=== PATIENT | male | born 1985 | race Caucasian/White ===

== ENCOUNTER 2021-07-10 17:30 | Emergency (ER) | payer BC, SELFPAY ==
[2021-07-10 17:35] VITALS: BP 149/80; PULSE 90; RESP 16; TEMP 37.4; O2SAT 100; BMI 31.0
[2021-07-10] MEDS: SODIUM CHLORIDE 0.9% 1,000 ML 1000 ML IV (19:43)
[2021-07-10] MEDS: METOCLOPRAMIDE 10 MG/2 ML INJ IV (19:44)
[2021-07-10] MEDS: diphenhydrAMINE 50 MG/ML VIAL 25 MG IV (19:44)
[2021-07-10] MEDS: DEXAMETHASONE 10 MG/ML VIAL IV (19:46)
[2021-07-10] MEDS: OXYCODONE/ACETAMINOPHEN 5/325 TABLET 1 TAB PO (19:47)
[2021-07-10 19:57] VITALS: BP 118/64; PULSE 73; O2SAT 98
[2021-07-10 20:01] VITALS: BP 118/64; PULSE 73; O2SAT 98
--- NOTE | 2021-07-10 20:08 | ED.HA ---
HPI - Headache <ARAVIND Lovell - Last Filed: 07/10/21 21:34> General Chief Complaint: Headache Stated Complaint: MIGRAINE Time Seen by Provider: 07/10/21 19:29 Mode of arrival: Ambulatory History of Present Illness HPI Narrative: 36-year-old male presents to the emergency department 1 day after he went to [facility] for a headache which started on 07/07/21. Patient has been having chills, fevers at night, and sweating the bed, a headache with photophobia, lightheadedness if he stands from sitting or lying since 07/07/2021. Patient denies any runny nose, cough, shortness of breath, chest pain, abdominal pain, nausea vomiting, mild throat pain, denies neck pain, reports this is the temporal headache that is squeezing in nature. He has tried Motrin, Tylenol today without any improvement. Yesterday [facility] he received Toradol, Tylenol, his respiratory panel was negative for all tested viruses including COVID, patient denies any productive cough, or other pain. Patient denies any sick contacts, reports that he has been dehydrated because his urine has been dark in color. Related Data Home Medications Medication Instructions Recorded Confirmed ibuprofen 200 mg tablet (Advil) #0 11/10/12 oxycodone-acetaminophen 5 mg-325 #0 11/10/12 mg tablet (Percocet) sulfamethoxazole 800 #0 11/10/12 mg-trimethoprim 160 mg tablet Review of Systems <ARAVIND Lovell - Last Filed: 07/10/21 21:34> Review of Systems Narrative: General: denies fever, chills Head/Neck: Endorses temporal headache, denies neck pain Eyes: Endorses photophobia with headache, denies eye pain Cardio: denies chest pain, palpitations Respiratory: denies shortness of breath, cough GI: denies abdominal pain, nausea, vomiting, or diarrhea : denies dysuria, hematuria MSK: denies joint pain, muscle weakness Skin: denies rash, itching Neuro: denies numbness, tingling Patient History <ARAVIND Lovell - Last Filed: 07/10/21 21:34> Social History Smoking Status: Current every day smoker Smoking Status: Current every day smoker tobacco type: vaping alcohol intake frequency: holidays/special occasions only Substance Use Type: marijuana Exam <ARAVIND Lovell - Last Filed: 07/10/21 21:34> Narrative Exam Narrative: Independently reviewed vitals signs and nursing notes. General: Awake, alert, nontoxic, no cardiorespiratory distress Head/Neck: Atraumatic, neck full range of motion Eyes: EOMI, conjunctiva normal, without nystagmus Nose: nares patent, no rhinorrhea Mouth/Throat: moist mucus membranes, posterior pharynx erythematous with mild cobblestoning, throat culture obtained, patient does not have tonsils, no oral lesions Cardio: Regular rate and rhythm, no peripheral edema Respiratory: respirations unlabored without wheezing, stridor, or rales. No retractions. GI: Abdomen soft, nontender MSK: Moves all extremities, neurovascularly intact Skin: Normal capillary refill, no rash Neuro: Normal speech and cognition, normal gait Initial Vital Signs Initial Vital Signs: Vital Signs Temperature 99.3 F 07/10/21 17:35 Pulse Rate 90 07/10/21 17:35 Respiratory Rate 16 07/10/21 17:35 Blood Pressure 149/80 H 07/10/21 17:35 Pulse Oximetry 100 07/10/21 17:35 <Gray Ho DO - Last Filed: 07/10/21 23:28> Initial Vital Signs Initial Vital Signs: Vital Signs Temperature 99.3 F 07/10/21 17:35 Pulse Rate 90 07/10/21 17:35 Respiratory Rate 16 07/10/21 17:35 Blood Pressure 149/80 H 07/10/21 17:35 Pulse Oximetry 100 07/10/21 17:35 Course <ARAVIND Lovell - Last Filed: 07/10/21 21:34> Orders Ordered: ED Orders 07/10/21 19:40 Throat Culture Stat 07/10/21 20:15 UA Complete [Urinalysis and Microscopic] Stat Discontinued Medications Dexamethasone (Dexamethasone 10 Mg/Ml Vial) 10 mg IV NOW ONE Stop: 07/10/21 19:32 Last Admin: 07/10/21 19:46 Dose: 10 mg Documented by: SILVIA Diphenhydramine HCl (Diphenhydramine 50 Mg/Ml Vial) 25 mg IV NOW ONE Stop: 07/10/21 19:32 Last Admin: 07/10/21 19:44 Dose: 25 mg Documented by: SILVIA Sodium Chloride (Normal Saline 0.9%) 1,000 mls @ 1,000 mls/hr IV BOLUS ONE Stop: 07/10/21 20:30 Last Infusion: 07/10/21 20:53 Dose: 0 mls/hr Documented by: Admin: 07/10/21 19:43 Dose: 1,000 mls/hr Documented by: SILVIA Methocarbamol (Methocarbamol 500 Mg Tablet) 500 mg PO NOW ONE Stop: 07/10/21 20:16 Last Admin: 07/10/21 20:21 Dose: 500 mg Documented by: SILVIA Metoclopramide HCl (Metoclopramide 10 Mg/2 Ml Inj) 10 mg IV NOW ONE Stop: 07/10/21 19:32 Last Admin: 07/10/21 19:44 Dose: 10 mg Documented by: SILVIA Oxycodone/Acetaminophen (Oxycodone/Acetaminophen 5/325 Tablet) 1 tab PO NOW ONE Stop: 07/10/21 19:40 Last Admin: 07/10/21 19:47 Dose: 1 tab Documented by: SILVIA Sumatriptan Succinate (Sumatriptan 6 Mg/0.5 Ml Vial) 6 mg SUBCUT NOW ONE Stop: 07/10/21 20:13 Last Admin: 07/10/21 20:22 Dose: 6 mg Documented by: SILVIA Vital Signs Vital signs: Vital Signs - 8 hr 07/10/21 17:35 07/10/21 19:57 07/10/21 20:01 Temperature 99.3 F Pulse Rate 90 73 73 Respiratory Rate 16 Blood Pressure 149/80 H 118/64 118/64 Pulse Oximetry 100 98 98 <Gray Ho DO - Last Filed: 07/10/21 23:28> Orders Ordered: ED Orders 07/10/21 19:40 Throat Culture Stat 07/10/21 20:15 UA Complete [Urinalysis and Microscopic] Stat Discontinued Medications Dexamethasone (Dexamethasone 10 Mg/Ml Vial) 10 mg IV NOW ONE Stop: 07/10/21 19:32 Last Admin: 07/10/21 19:46 Dose: 10 mg Documented by: SILVIA Diphenhydramine HCl (Diphenhydramine 50 Mg/Ml Vial) 25 mg IV NOW ONE Stop: 07/10/21 19:32 Last Admin: 07/10/21 19:44 Dose: 25 mg Documented by: SILVIA Sodium Chloride (Normal Saline 0.9%) 1,000 mls @ 1,000 mls/hr IV BOLUS ONE Stop: 07/10/21 20:30 Last Infusion: 07/10/21 20:53 Dose: 0 mls/hr Documented by: Admin: 07/10/21 19:43 Dose: 1,000 mls/hr Documented by: SILVIA Methocarbamol (Methocarbamol 500 Mg Tablet) 500 mg PO NOW ONE Stop: 07/10/21 20:16 Last Admin: 07/10/21 20:21 Dose: 500 mg Documented by: SILVIA Metoclopramide HCl (Metoclopramide 10 Mg/2 Ml Inj) 10 mg IV NOW ONE Stop: 07/10/21 19:32 Last Admin: 07/10/21 19:44 Dose: 10 mg Documented by: SILVIA Oxycodone/Acetaminophen (Oxycodone/Acetaminophen 5/325 Tablet) 1 tab PO NOW ONE Stop: 07/10/21 19:40 Last Admin: 07/10/21 19:47 Dose: 1 tab Documented by: SILVIA Sumatriptan Succinate (Sumatriptan 6 Mg/0.5 Ml Vial) 6 mg SUBCUT NOW ONE Stop: 07/10/21 20:13 Last Admin: 07/10/21 20:22 Dose: 6 mg Documented by: SILVIA Vital Signs Vital signs: Vital Signs - 8 hr 07/10/21 17:35 07/10/21 19:57 07/10/21 20:01 Temperature 99.3 F Pulse Rate 90 73 73 Respiratory Rate 16 Blood Pressure 149/80 H 118/64 118/64 Pulse Oximetry 100 98 98 MDM - Headache <ARAVIND Lovell - Last Filed: 07/10/21 21:34> Lab Data Labs: Lab Results 07/10/21 Range/Units 20:15 Urine Color Yellow Urine Appearance Clear Urine pH 7.0 (4.5-8.0) Ur Specific [place] <=1.005 (1.000-1.035) Urine Protein Negative (Negative) Urine Glucose (UA) Negative (Negative) g/dL Urine Ketones Negative (NEGATIVE) Urine Occult Blood Negative (Negative) Urine Nitrate Negative (Negative) Urine Bilirubin Negative (NEGATIVE) Urine Urobilinogen 0.2 (0.2) E.U./dL Ur Leukocyte Esterase Negative (NEGATIVE) Urine RBC None seen (0-5/HPF) Urine WBC 0-1/hpf (0-5/HPF) Ur Squamous Epith Cells 0-1 /hpf (0-5/HPF) Urine Bacteria None seen (None) Ur Culture Indicated? Cult not indicated MDM Narrative Medical decision making narrative: 36-year-old presents to the emergency department tonight for headache which has been ongoing for 4 days. Yesterday he was seen at [facility] emergency and diagnosed with viral syndrome with a negative respiratory panel, was given Toradol and Tylenol for pain. Tonight he has a Low-grade fever, denies any other symptoms other than his headache. Posterior pharynx with mild erythema, pt previously had a T&A removal, no anterior cervical lymphadenopathy but throat culture was obtained to rule out strep or bacterial cause for his symptoms. Patient denies any dental pain, abdominal pain, or any other focal symptoms. He does not have neck tenderness or rigidity, low suspicion for meningitis. Patient was given 1 L of normal saline for dehydration, dexamethasone, Benadryl, Reglan, Percocet, and sumatriptan succinate which brought patient's pain from a 9/10 down to a 4/10. Patient was not given Toradol as he received in the last 24 hours. Patient was referred to [facility] to follow-up with a primary care provider. He states that his previous provider has left the office, and he needs to follow-up with a new provider there. I told him we will call him if his cultures are positive if he needs an antibiotic. Encouraged to treat symptomatically and to return if he develops any worsening, or any focal symptoms that we could better evaluate. Patient is appropriate and amenable to discharge home. Vital signs are stable on repeat examination is unremarkable. Patient has been informed of results. Patient has been given strict return to ER precautions for any new or worsening symptoms. Patient understands to follow up closely with outpatient providers as instructed. Patient understands plan and agrees to discharge home. All questions and concerns answered at this time. <Gray Lanker, DO - Last Filed: 07/10/21 23:28> Lab Data Labs: Lab Results 07/10/21 Range/Units 20:15 Urine Color Yellow Urine Appearance Clear Urine pH 7.0 (4.5-8.0) Ur Specific [place] <=1.005 (1.000-1.035) Urine Protein Negative (Negative) Urine Glucose (UA) Negative (Negative) g/dL Urine Ketones Negative (NEGATIVE) Urine Occult Blood Negative (Negative) Urine Nitrate Negative (Negative) Urine Bilirubin Negative (NEGATIVE) Urine Urobilinogen 0.2 (0.2) E.U./dL Ur Leukocyte Esterase Negative (NEGATIVE) Urine RBC None seen (0-5/HPF) Urine WBC 0-1/hpf (0-5/HPF) Ur Squamous Epith Cells 0-1 /hpf (0-5/HPF) Urine Bacteria None seen (None) Ur Culture Indicated? Cult not indicated Discharge Plan Departure Patient Disposition: Home Clinical Impression: Headache, Fever Instructions: DI for Migraine, DI for Viral Syndrome Activity Restrictions/Additional Instructions: *You have been diagnosed with fever of unknown origin, a headache for 4 days, likely a viral syndrome however your respiratory panel was negative for all tested viruses. If you get a phone call from the hospital about your throat culture, please answer as you may need antibiotics for an infection like strep throat. Please try and stay hydrated, use ibuprofen and Tylenol as needed for pain, hopefully your headache is gone by tomorrow, if this returns, you are worsening, please return for further evaluation. Thank you for trusting us with your care, sorry we do not have a good answer to your headache and fever. If you develop any focal symptoms like your pain, abdominal pain, or anything like that that may be the source, and it would be best to come in without information and have us evaluate it. Please call Angela Comer's office 1st thing in the morning and state that you have a referral to follow-up as soon as possible for headache and fever of unknown origin. Say who used to see and how she left, and need to establish care with a new primary. *What to do: *Please continue to take your regular medications as directed. [ ] New medication prescriptions sent to your pharmacy: [ ] [ ] New medication written as a paper prescription [x ] No new medications given *Please follow up with your primary care provider in 2-3 days, call for an appointment. Let them know you were seen in the Emergency Department and that we ask that you be seen in follow up. We will electronically transmit a record of today's note if your PCP is in our system *If you do not have a primary care provider please contact the [facility] Resource line at [phone]. They will ask some questions about your medical history and help get you set up with a doctor in the community. *Return to Emergency Department if you should have any new, worsening or concerning symptoms, such as [fever greater than 101F, chills, worsening pain, persistent vomiting or other bothersome symptoms] Prescriptions: No Action sulfamethoxazole-trimethoprim 800 MG/160 MG tablet Qty: 0 0RF oxycodone-acetaminophen [Percocet] 5 MG/325 MG tablet Qty: 0 0RF ibuprofen [Advil] 200 MG tablet Qty: 0 0RF Referrals: Angela Comer ARNP [Non-Staff] - As soon as possible (Please follow up DELANEY ) Barb Melissa PA-C [Primary Care Provider] - <Gray Ho DO - Last Filed: 07/10/21 23:28> Cosign ED Attending Cosprabhakarature Attestation: Dr Ho Co-Sign Statement: I was available for consultation during this patient's emergency department visit. This chart is signed by myself for administrative purposes only. I did not have direct contact with this patient during this visit. They were seen independently by the APC.
[2021-07-10] MEDS: methocarbamoL 500 MG TABLET PO (20:21)
[2021-07-10] MEDS: SUMAtriptan 6 MG/0.5 ML VIAL SUBCUT (20:22)
[2021-07-10 20:37] LABS: Appearance Urine UA CLEAR; Bilirubin Urine UA NEGATIVE (NEGATIVE); Color Urine UA YELLOW; Glucose Urine UA NEGATIVE (Negative); Ketones Urine UA NEGATIVE (NEGATIVE); Leukocyte Esterase Urine UA NEGATIVE (NEGATIVE); Nitrite Urine UA NEGATIVE (Negative); Occult Blood Urine UA NEGATIVE (Negative); Protein Urine UA NEGATIVE (Negative); Specific Gravity Urine UA <=1.005 (1.000-1.035); Urobilinogen Urine UA 0.2 E.U./dL (0.2)
[2021-07-10 20:45] LABS: Bacteria Urine None Seen; Culture Indicated Urine Cult Not Indicated; RBC Urine None Seen (0-5/HPF); Squamous Epithelial Cell Urine 0-1 /HPF (0-5/HPF); WBC Urine 0-1/HPF (0-5/HPF)
== END 2021-07-10 21:38 | disposition home or self-care (01) ==
PROVIDERS: Emergency Provider Nurse Practitioner Critical Care Medicine; Family Provider Physician Assistant Medical; PCP Physician Assistant Medical
DX: R51.9 Headache, unspecified (principal); R50.9 Fever, unspecified; E86.0 Dehydration; R42 Dizziness and giddiness
CPT/HCPCS: 81001; 87070; 96361; 96372; 96374; 96375; 99284; J1100; J1200; J2765; J3030

== ENCOUNTER 2021-07-13 11:46 | Emergency (ER) | payer BC, SELFPAY ==
[2021-07-13] VITALS (10 sets, daily range): BP systolic 123–133; BP diastolic 73–83; PULSE 49–64; RESP 18; TEMP 36.6; O2SAT 94–98; BMI 30.4
--- NOTE | 2021-07-13 13:01 | ED_ITS ---
HPI - Chest Pain <Riky Jordan PA-C - Last Filed: 07/13/21 20:01> General Chief Complaint: Chest Pain Stated Complaint: headaches, chest pain Time Seen by Provider: 07/13/21 12:14 Source: patient Mode of arrival: Ambulatory Limitations: no limitations History of Present Illness HPI narrative: Patient is a 36-year-old male presenting to the emergency department today for evaluation of ongoing headache and nausea. Patient states that he has experienced an on again off again headache for approximately 1 week. He was originally seen at [facility] and was given Toradol and Tylenol to help alleviate his pain. He states that his pain reduced but returned the very next day with the same nausea and headache. He was then seen here at [facility] ER and was given numerous medications to help with his headache. He states that he began to feel better and was discharged home, but notes that he began to experience a headache, chest pain, nausea, and night sweats on . Of note, patient states that a close contact and recently tested positive for COVID-19. He denies cough, shortness of breath, vomiting, diarrhea, abdominal pain, dysuria, hematuria, diaphoresis, jaw pain, arm pain, or any other concerning symptoms. No further concerns or forced at this time. Related Data Home Medications Medication Instructions Recorded Confirmed ibuprofen 200 mg tablet (Advil) #0 11/10/12 oxycodone-acetaminophen 5 mg-325 #0 11/10/12 mg tablet (Percocet) sulfamethoxazole 800 #0 11/10/12 mg-trimethoprim 160 mg tablet Previous Rx's Medication Instructions Recorded ondansetron HCl 4 mg tablet 4 mg PO Q8H PRN #20 tab 07/13/21 (Zofran) Review of Systems <Riky Jordan PA-C - Last Filed: 07/13/21 20:01> Constitutional Constitutional: Denies chills, Denies fatigue, Denies fever(s), Denies frequent falls, Reports headache(s), Denies lethargy, Reports night sweats and Denies weakness Eyes Eyes: Denies loss of vision ENT Ears, Nose, Mouth, and Throat: Denies change in voice, Denies dizziness, Reports headache(s), Denies neck pain, Denies sore throat and Denies throat swelling Cardiovascular Cardiovascular: Reports chest pain, Denies irregular heart rhythm, Denies lightheadedness, Denies palpitations, Denies dyspnea, Denies dyspnea on exertion and Denies orthopnea Respiratory Respiratory: Denies cough, Denies dyspnea, Denies dyspnea on exertion and Denies wheezing Gastrointestinal Gastrointestinal: Denies abdominal pain, Denies change in bowel habits, Reports constipation, Denies diarrhea, Reports nausea and Denies vomiting Genitourinary Genitourinary: Denies hematuria, Denies flank pain, Denies urinary incontinence and Denies urinary urgency Musculoskeletal Musculoskeletal: Denies back pain, Denies muscle weakness, Denies neck pain, Denies numbness and Denies tingling Integumentary/Breasts Skin/Breast: Denies pruritus, Denies erythema, Denies rash and Denies wounds Neurologic Neurologic: Denies behavioral changes, Denies confusion, Denies dizziness, Denies frequent falls, Reports headache(s), Denies loss of vision, Denies numbness, Denies tingling and Denies weakness Psychiatric Psychiatric: Denies behavioral changes and Denies confusion Endocrine Endocrine: Denies fatigue and Denies palpitations Allergic/Immunologic Allergic/Immunologic: Denies throat swelling and Denies wheezing Patient History <Riky Jordan PA-C - Last Filed: 07/13/21 20:01> Social History Smoking Status: Current every day smoker Smoking Status: Current every day smoker tobacco type: vaping alcohol intake frequency: holidays/special occasions only Substance Use Type: marijuana Exam <Riky Jordan PA-C - Last Filed: 07/13/21 20:01> Narrative Exam Narrative: GENERAL: 36 year old patient appears stated age. Well-developed patient, in no acute distress. HEAD: Atraumatic. Normocephalic. EYES: Pupils equal round and reactive. Extraocular motions intact. No scleral icterus. No injection or drainage. ENT: Nose without bleeding, purulent drainage. Throat without erythema, tonsillar hypertrophy or exudate. Airway patent. NECK: Trachea midline. Non tender CARDIOVASCULAR: Regular rate and rhythm without murmurs, gallops, or rubs. RESPIRATORY: Clear to auscultation. Breath sounds equal bilaterally. No wheezes, rales, or rhonchi. GASTROINTESTINAL: Abdomen soft, non-tender, nondistended. EXTREMITIES: No edema or joint tenderness. BACK: Nontender without deformity or crepitance. No flank tenderness. NEURO: AOx3. SKIN: No rash or erythema of visible areas Initial Vital Signs Initial Vital Signs: Vital Signs Temperature 98 F 07/13/21 11:51 Pulse Rate 64 07/13/21 11:51 Respiratory Rate 18 07/13/21 11:51 Blood Pressure 133/79 07/13/21 11:51 Pulse Oximetry 98 07/13/21 11:51 Course <Riky Jordan PA-C - Last Filed: 07/13/21 20:01> Course Course Narrative: Patient is provided intramuscular Toradol, IV Benadryl, IV normal saline, IV Decadron, and IV Reglan for headache. EKG and chest x-ray obtained as well as respiratory panel, CBC, CMP, troponin Orders Ordered: ED Orders 07/13/21 11:59 Respiratory Panel (Film Array) Stat 07/13/21 12:14 CBC Auto Diff [Complete Blood Count AUTO DIFF] Stat CMP [Comprehensive Metabolic Panel] Stat Troponin & CK Cardiac Panel Stat 07/13/21 13:08 XR chest 1V Stat Discontinued Medications Dexamethasone (Dexamethasone 4 Mg/Ml Vial) 4 mg IV NOW ONE Stop: 07/13/21 12:58 Last Admin: 07/13/21 13:26 Dose: 4 mg Documented by: KATE Diphenhydramine HCl (Diphenhydramine 50 Mg/Ml Vial) 25 mg IV NOW ONE Stop: 07/13/21 12:58 Last Admin: 07/13/21 13:26 Dose: 25 mg Documented by: KATE Sodium Chloride (Normal Saline 0.9%) 1,000 mls @ 1,000 mls/hr IV BOLUS ONE Stop: 07/13/21 13:56 Last Infusion: 07/13/21 14:42 Dose: 0 mls/hr Documented by: Admin: 07/13/21 13:28 Dose: 1,000 mls/hr Documented by: KATE Ketorolac Tromethamine (Ketorolac 30 Mg/Ml Vial) 15 mg IM NOW ONE Stop: 07/13/21 12:58 Last Admin: 07/13/21 13:27 Dose: 15 mg Documented by: KATE Metoclopramide HCl (Metoclopramide 10 Mg/2 Ml Inj) 5 mg IV NOW ONE Stop: 07/13/21 12:58 Last Admin: 07/13/21 13:26 Dose: 5 mg Documented by: KATE Vital Signs Vital signs: Vital Signs - 8 hr 07/13/21 12:30 07/13/21 13:00 07/13/21 13:30 Pulse Rate 62 60 58 L Blood Pressure 124/80 123/80 133/83 Pulse Oximetry 97 95 94 07/13/21 14:00 07/13/21 14:01 07/13/21 14:30 Pulse Rate 49 L 52 L 52 L Blood Pressure 131/76 Pulse Oximetry 94 95 94 07/13/21 14:31 07/13/21 14:56 Pulse Rate 54 L 62 Blood Pressure 130/76 124/73 Pulse Oximetry 94 97 MDM - Chest Pain <Riky Jordan PA-C - Last Filed: 07/13/21 20:01> Medical Records Data Medical records narrative: To consider tension headache versus migraine versus cluster headache versus viral upper respiratory infection versus COVID-19 versus pneumonia. Lab Data Result diagrams: 07/13/21 12:14 07/13/21 12:14 Labs: Lab Results 07/13/21 07/13/21 07/13/21 Range/Units 11:59 12:14 12:14 WBC 6.5 (4.5-11.0) X10^3/uL RBC 4.70 (4.5-5.9) X10^6/uL Hgb 14.4 (13.5-17.5) g/dL Hct 41.2 (41-53) % MCV 87.7 (80-100) fL MCH 30.6 (26-34) PG MCHC 34.9 (30-36) % RDW 13.3 (11.6-14.8) % Plt Count 223 (150-400) X10^3/uL Neut % (Auto) 60.8 (50-75) % Lymph % (Auto) 25.5 (25-40) % [place] % (Auto) 10.4 (3-14) % Eos % (Auto) 2.1 (2-4) % Baso % (Auto) 1.2 (0-2) % Neut # (Auto) 4000 (1025-1934) /uL Lymph # (Auto) 1700 (7697-3106) /uL [place] # (Auto) 700 (0-900) /uL Eos # (Auto) 100 (0-450) /uL Baso # (Auto) 100 (0-100) /uL Sodium 138 (137-145) mmol/L Potassium 3.8 (3.4-5.1) mmol/L Chloride 106 (98-107) mmol/L Carbon Dioxide 27 (22-32) mmol/L BUN 12 (9-20) mg/dL Creatinine 1.06 (0.66-1.25) mg/dL Estimated GFR > 60.0 (>60) mL/min BUN/Creatinine Ratio 11.3 (6-22) Glucose 116 H (70-100) mg/dL Calcium 9.1 (8.4-10.2) mg/dL Total Bilirubin 0.7 (0.2-1.3) mg/dL AST 20 (17-59) IU/L ALT 17 (<50) IU/L Alkaline Phosphatase 26 L (38-126) U/L Total Creatine Kinase 83 (55-170) U/L CK-MB (CK-2) TNP CK-MB (CK-2) Rel Index TNP Troponin I < 0.012 (0.01-0.034) ng/mL Total Protein 6.7 (6.3-8.2) g/dL Albumin 4.2 (3.5-5.0) g/dL Globulin 2.5 (1.7-4.1) g/dL Albumin/Globulin Ratio 1.7 (1.0-2.8) Chlamy pneumoniae PCR Not detected (Not Detect) Adenovirus (PCR) Not detected (Not Detect) B. pertussis DNA (PCR) Not detected (Not Detecte) B.parapertussis DNA PCR Not detected (Not Detecte) Coronavirus OC43 (PCR) Not detected (Not Detect) Coronavirus HKU1 (PCR) Not detected (Not Detect) Coronavirus 229E (PCR) Not detected (Not Detect) SARS-CoV-2 (PCR) Not detected (Not Detecte) Coronavirus NL63 (PCR) Not detected (Not Detect) Human Metapneumovir PCR Not detected (Not Detect) Influenza Type A (PCR) Not detected (Not Detect) Influenza Type B (PCR) Not detected (Not Detect) M. pneumoniae (PCR) Not detected (Not Detect) Parainfluenza 1 (PCR) Not detected (Not Detect) Parainfluenza 2 (PCR) Not detected (Not Detect) Parainfluenza 3 (PCR) Not detected (Not Detect) Parainfluenza 4 (PCR) Not detected (Not Detect) RSV (PCR) Not detected (Not Detect) Entero/Rhino (PCR) Not detected (Not Detect) Imaging Data Chest x-ray: Radiologist's Impression: PROCEDURE:? XR CHEST 1V ? INDICATIONS:? Chest pain ? TECHNIQUE:? One view of the chest was acquired.? ? COMPARISON:? None. ? FINDINGS:? ? Surgical changes and devices:? None.? ? Lungs and pleura:? Lungs are clear.? No pleural effusions or pneumothorax.? ? Mediastinum:? Mediastinal contours appear normal.? Heart size is normal.? ? Bones and chest wall:? No suspicious bony lesions.? Overlying soft tissues appear unremarkable.? ? IMPRESSION:? No acute cardiopulmonary abnormality. ? ? Dictated by: Claudio Hart M.D. on 07/13/2021 at 14:36 ? ? Approved by: Claudio Hart M.D. on 07/13/2021 at 14:37 ? MDM Narrative Medical decision making narrative: To consider viral upper respiratory infection versus COVID-19 versus pneumonia verses migraine versus tension headache versus cluster headache. Overall physical examination, history, lab work, and imaging are reassuring. Discussed lab work and imaging with patient informed him that no acute abnormalities were detected. Patient states that he is feeling better after Decadron, normal saline, Benadryl, Toradol, and Reglan. Patient requests a refill on his Zofran prescription and I have provided that consented to his preferred pharmacy. Patient states at this time he feels comfortable being discharged home he is stable for discharge. Strict return precautions were discussed with the patient prior to discharge. Discharge Plan Departure Patient Disposition: Home Clinical Impression: Headache, Chest pain Instructions: DI for Migraine Activity Restrictions/Additional Instructions: *You have been diagnosed with headache, chest pain *What to do: *Please continue to take your regular medications as directed. [X] New medication prescriptions sent to your pharmacy: [facility] - Zofran [ ] New medication written as a paper prescription [ ] No new medications given *Please follow up with your primary care provider in 2-3 days, call for an appointment. Let them know you were seen in the Emergency Department and that we ask that you be seen in follow up. We will electronically transmit a record of today's note if your PCP is in our system *If you do not have a primary care provider please contact the [facility] Resource line at [phone]. They will ask some questions about your medical history and help get you set up with a doctor in the community. *Return to Emergency Department if you should have any new, worsening or concerning symptoms, such as fever greater than 101 F, shaking chills, worsening pain, persistent vomiting or other bothersome symptoms Prescriptions: New ondansetron HCl [Zofran] 4 mg tablet 4 mg PO Q8H PRN (Reason: nausea and vomiting) Qty: 20 0RF No Action sulfamethoxazole-trimethoprim 800 MG/160 MG tablet Qty: 0 0RF oxycodone-acetaminophen [Percocet] 5 MG/325 MG tablet Qty: 0 0RF ibuprofen [Advil] 200 MG tablet Qty: 0 0RF Referrals: Barb Melissa PA-C [Primary Care Provider] -
--- NOTE | 2021-07-13 13:08 | DI.RAD.S_ITS ---
PROCEDURE: XR CHEST 1V INDICATIONS: Chest pain TECHNIQUE: One view of the chest was acquired. COMPARISON: None. FINDINGS: Surgical changes and devices: None. Lungs and pleura: Lungs are clear. No pleural effusions or pneumothorax. Mediastinum: Mediastinal contours appear normal. Heart size is normal. Bones and chest wall: No suspicious bony lesions. Overlying soft tissues appear unremarkable. IMPRESSION: No acute cardiopulmonary abnormality. Dictated by: Claudio Hart M.D. on 07/13/2021 at 14:36 Approved by: Claudio Hart M.D. on 07/13/2021 at 14:37
[2021-07-13 13:15] LABS: Add Manual Diff / Slide Review NO; Basophils Absolute Auto 100 /uL (0-100); Basophils Percent Auto 1.2 % (0-2); Eosinophils Absolute Auto 100 /uL (0-450); Eosinophils Percent Auto 2.1 % (2-4); Hematocrit 41.2 % (41-53); Hemoglobin 14.4 g/dL (13.5-17.5); Lymphocytes Absolute Auto 1700 /uL (1100-4500); Lymphocytes Percent Auto 25.5 % (25-40); Mean Corpuscular HGB Conc 34.9 % (30-36); Mean Corpuscular Hemoglobin 30.6 PG (26-34); Mean Corpuscular Volume 87.7 fL (80-100); Monocytes Absolute Auto 700 /uL (0-900); Monocytes Percent Auto 10.4 % (3-14); Neutrophils Absolute Auto 4000 /uL (1500-7000); Neutrophils Percent Auto 60.8 % (50-75); Platelet Count 223 X10^3/uL (150-400); Red Cell Distribution Width 13.3 % (11.6-14.8); White Blood Cell Count 6.5 X10^3/uL (4.5-11.0)
[2021-07-13 13:20] LABS: Alanine Aminotransferase 17 IU/L (<50); Albumin 4.2 g/dL (3.5-5.0); Albumin Globulin Ratio 1.7 (1.0-2.8); Alkaline Phosphatase 26 U/L (38-126); Aspartate Aminotransferase 20 IU/L (17-59); BUN Creatinine Ratio 11.3 (6-22); Bilirubin Total 0.7 mg/dL (0.2-1.3); Blood Urea Nitrogen 12 mg/dL (9-20); Calcium 9.1 mg/dL (8.4-10.2); Carbon Dioxide 27 mmol/L (22-32); Chloride 106 mmol/L (98-107); Creatine Kinase 83 U/L (55-170); Estimated Glomerular Filt Rate > 60.0 mL/min (>60); Globulin 2.5 g/dL (1.7-4.1); Glucose 116 mg/dL (70-100); HEMOLYSIS < 15 (0-50); Potassium 3.8 mmol/L (3.4-5.1); Sodium 138 mmol/L (137-145); Total Protein 6.7 g/dL (6.3-8.2)
[2021-07-13] MEDS: METOCLOPRAMIDE 10 MG/2 ML INJ 5 MG IV (13:26)
[2021-07-13] MEDS: DEXAMETHASONE 4 MG/ML VIAL IV (13:26)
[2021-07-13] MEDS: diphenhydrAMINE 50 MG/ML VIAL 25 MG IV (13:26)
[2021-07-13] MEDS: KETOROLAC 30 MG/ML VIAL 15 MG IM (13:27)
[2021-07-13] MEDS: SODIUM CHLORIDE 0.9% 1,000 ML 1000 ML IV (13:28)
[2021-07-13 13:32] LABS: Troponin I < 0.012 ng/mL (0.01-0.034)
[2021-07-13 13:41] LABS: Adenovirus Not Detected (Not Detect); B. parapertussis Not Detected (Not Detecte); Bordetella pertussis Not Detected (Not Detecte); Chlamydophila pneumoniae Not Detected (Not Detect); Coronavirus 229E Not Detected (Not Detect); Coronavirus HKU1 Not Detected (Not Detect); Coronavirus NL 63 Not Detected (Not Detect); Coronavirus OC43 Not Detected (Not Detect); Human Metapneumovirus Not Detected (Not Detect); Human Rhinovirus/Enterovirus Not Detected (Not Detect); Influenza A Not Detected (Not Detect); Influenza B Not Detected (Not Detect); Parainfluenza Virus 1 Not Detected (Not Detect); Parainfluenza Virus 2 Not Detected (Not Detect); Parainfluenza Virus 3 Not Detected (Not Detect); Parainfluenza Virus 4 Not Detected (Not Detect); Respiratory Syncytial Virus Not Detected (Not Detect); SARS- CoV-2 Not Detected (Not Detecte)
[2021-07-13 13:42] LABS: Mycoplasma pneumoniae Not Detected (Not Detect)
== END 2021-07-13 15:00 | disposition home or self-care (01) ==
PROVIDERS: Emergency Provider Physician Assistant; Family Provider Physician Assistant Medical; PCP Physician Assistant Medical
DX: R51.9 Headache, unspecified (principal); R07.9 Chest pain, unspecified; Z20.822 Contact with and (suspected) exposure to COVID-19
CPT/HCPCS: 36415; 71045; 80053; 82550; 84484; 85025; 87633; 96361; 96372; 96374; 96375; 99284; J1100; J1200; J1885; J2765